=== PATIENT | female | born 1960 | race Caucasian/White ===

== ENCOUNTER → 2022-05-19 | Outpatient (CLI) | payer MEDICAID, SELFPAY ==
--- NOTE | 2022-05-19 13:46 | VDLE_ITS ---
Reason For Study: Swelling, pain Procedure LEFT This is a venous duplex using B-mode, color CFV is compressible, spontaneous, phasic, flow and spectral Doppler. competent, and demonstrates normal Exam performed in department. augmentation. A preliminary report was called and/or faxed FV is compressible, spontaneous, phasic, to Vero RUSSO. competent and demonstrates normal augmentation. POP V is compressible, spontaneous, phasic, competent and demonstrates normal augmentation. T/P Trunk is compressible. PTV is compressible. LT PerV is compressible. SFJ is noncompressible with bright intraluminal echoes. GSV was previously harvested in March 2022 s/p CABG. VL/Venous Duplex US, Unilateral Interpretation Summary Deep veins of the left lower extremity are patent and compressible segmentally. There is no evidence of left lower extremity deep vein thrombosis. Left sapheno-femoral junction with indeterminate superficial vein thrombus, rem ainder of great saphenous surgically absent Ordering Physician: Maira Stack Performed By: Edith Ashby RVT
== END | disposition home or self-care (01) ==
LOC: CVS 13:46
PROVIDERS: Referring Provider Internal Medicine Cardiovascular Disease; Visit Provider Internal Medicine Cardiovascular Disease
DX: M79.605 Pain in left leg (principal); R60.9 Edema, unspecified
CPT/HCPCS: 93971

== ENCOUNTER → 2022-05-26 | Outpatient (CLI) | payer MEDICAID, SELFPAY ==
[2022-05-26 15:46] LABS: Anion Gap 7 (5-15); BUN 21 mg/dL (7-18); BUN/Creat Ratio 24.5 RATIO (10-20); Calcium,Total 9.5 mg/dL (8.5-10.1); Chloride 105 mmol/L (98-107); Creatinine, Serum 0.86 mg/dL (0.55-1.02); EST Glomerular Filtration Rate 71 mL/min (>60); Est Glom Filt Rate - Afr Amer 86 mL/min (>60); Glucose 103 mg/dL (74-106); Potassium 4.1 mmol/L (3.5-5.1); Sodium Level 143 mmol/L (136-145)
== END | disposition home or self-care (01) ==
LOC: LAB 13:41
PROVIDERS: Visit Provider Internal Medicine Cardiovascular Disease
DX: I10 Essential (primary) hypertension (principal)
CPT/HCPCS: 36415; 80048

== ENCOUNTER → 2022-08-20 | Outpatient (CLI) | payer MEDICAID, SELFPAY ==
[2022-08-20 09:26] LABS: AST(SGOT) 22 U/L (15-37); Alanine Aminotransfer ALT/SGPT 30 U/L (13-56); CPK Total, Creatine Kinase 122 U/L (26-192); Cholesterol 149 mg/dL (200); High Density Lipoprotein 52 mg/dL; Triglycerides 99 mg/dL; Very Low Density Lipoprotein 20 mg/dL (5-40)
== END | disposition home or self-care (01) ==
LOC: LAB 08:29
PROVIDERS: Referring Provider Internal Medicine Cardiovascular Disease; Visit Provider Internal Medicine Cardiovascular Disease
DX: E78.2 Mixed hyperlipidemia (principal)
CPT/HCPCS: 36415; 80061; 82550; 84450; 84460

== ENCOUNTER → 2022-08-25 | Outpatient (CLI) | payer MEDICAID, SELFPAY ==
[2022-08-25 10:55] LABS: Anion Gap 8 (5-15); BUN 24 mg/dL (7-18); BUN/Creat Ratio 28.7 RATIO (10-20); Calcium,Total 9.4 mg/dL (8.5-10.1); Chloride 104 mmol/L (98-107); Creatinine, Serum 0.84 mg/dL (0.55-1.02); EST Glomerular Filtration Rate 73 mL/min (>60); Est Glom Filt Rate - Afr Amer 88 mL/min (>60); Glucose 107 mg/dL (74-106); Potassium 3.8 mmol/L (3.5-5.1); Sodium Level 143 mmol/L (136-145)
== END | disposition home or self-care (01) ==
LOC: LAB 09:13
PROVIDERS: Referring Provider Internal Medicine Cardiovascular Disease; Visit Provider Internal Medicine Cardiovascular Disease
DX: I25.10 Atherosclerotic heart disease of native coronary artery without angina pectoris (principal)
CPT/HCPCS: 36415; 80048

== ENCOUNTER → 2022-12-09 | Outpatient (CLI) | payer MEDICAID, SELFPAY ==
[2022-12-09 09:07] LABS: AST(SGOT) 28 U/L (15-37); Alanine Aminotransfer ALT/SGPT 31 U/L (13-56); Cholesterol 131 mg/dL (200); High Density Lipoprotein 61 mg/dL; Triglycerides 74 mg/dL; Very Low Density Lipoprotein 15 mg/dL (5-40)
== END | disposition home or self-care (01) ==
LOC: LAB 07:51
PROVIDERS: Visit Provider Internal Medicine Cardiovascular Disease
DX: I25.10 Atherosclerotic heart disease of native coronary artery without angina pectoris (principal); I42.9 Cardiomyopathy, unspecified; E78.2 Mixed hyperlipidemia
CPT/HCPCS: 36415; 80061; 84450; 84460

== ENCOUNTER → 2023-03-05 | Outpatient (CLI) | payer MEDICARE, MEDICAID, SELFPAY ==
--- NOTE | 2023-03-05 10:46 | ECHOCS_ITS ---
Reason For Study: Dyspnea Procedure This was a 2D Doppler, Color Flow transthoracic echocardiogram. The study was technically difficult. Contrast injection was performed. Exam performed in department. Left Ventricle Mildly dilated left ventricle. The left ventricular ejection fraction is 50 %. Stage 1 diastolic dysfunction. Inferior hypokinesis. Right Ventricle Normal right ventricle. Atria The left and right atria are normal. Bubble contrast study is negative for PFO/ASD. Mitral Valve Mild mitral annular calcification. Trivial mitral valve insufficiency. Tricuspid Valve Trivial tricuspid valve insufficiency. Normal pulmonary artery pressure. Aortic Valve Aortic sclerosis, no stenosis. Pulmonic Valve The pulmonic valve is not well visualized. Great Vessels Mildly dilated aortic root. Pericardium/Pleural No pericardial effusion. Medication 22 gauge I.V. with prn adaptor inserted into right arm. Diluted definity 2ml given slow IV push to enhance endocardial definition. Performed a rapid injection of agitated mix of 9 cc saline and 1cc air to assess for atrial septal defect. MMode/2D Measurements & Calculations LVIDd: 5.7 cm IVSd: 0.96 cm Ao root diam: 3.7 cm LVIDs: 4.5 cm LVPWd: 0.74 cm LA dimension: 4.2 cm RVDd: 4.0 cm FS: 19.8 % LAV(MOD-bp): 54.1 ml LVAd ap4: 41.5 cm2 SV(MOD-sp4): 86.5 ml LAV(MOD-bp) Indexed: 25.7 ml/m2 LVLd ap4: 8.4 cm LAV(MOD-sp2): 63.1 ml EDV(MOD-sp4): 168.5 ml LAV(MOD-sp4): 45.0 ml EDV(sp4-el): 174.3 ml LVAs ap4: 26.4 cm2 LVLs ap4: 6.9 cm ESV(MOD-sp4): 82.0 ml ESV(sp4-el): 86.2 ml EF(MOD-sp4): 51.3 % EF(sp4-el): 50.6 % SV(sp4-el): 88.2 ml LA A4 area: 16.7 cm2 RA A4 area: 14.8 cm2 TAPSE: 1.0 cm Time Measurements MV dec time: 0.38 sec Doppler Measurements & Calculations MV E max marco: 46.1 cm/sec Lat Peak E' Marco: 11.2 cm/sec Med Peak E' Marco: 5.6 cm/sec MV A max marco: 81.0 cm/sec E/E' lat: 4.1 E/E' med: 8.3 MV E/A: 0.57 MV V2 max: 115.5 cm/sec MV P1/2t max marco: 68.1 cm/sec Ao V2 max: 121.4 cm/sec MV max P.3 mmHg MV P1/2t: 120.7 msec Ao max P.9 mmHg MV V2 mean: 58.1 cm/sec MV mean P.6 mmHg MV dec slope: 165.3 cm/sec2 MV V2 VTI: 30.7 cm MVA(P1/2t): 1.8 cm2 LV V1 max: 87.4 cm/sec PA V2 max: 92.8 cm/sec TR max marco: 253.6 cm/sec LV V1 max P.1 mmHg TR max P.7 mmHg ECHO/Echo Complete W/ Contrast Interpretation Summary Mildly dilated left ventricle. The left ventricular ejection fraction is 50 %. Inferior hypokinesis Stage 1 diastolic dysfunction. Mild mitral annular calcification. Aortic sclerosis, no stenosis. Mildly dilated aortic root. Ordering Physician: Maira Stack Referring Physician: Maira Stack Performed By: Abel David RCS
== END | disposition home or self-care (01) ==
LOC: CVS 10:45
PROVIDERS: Referring Provider Internal Medicine Cardiovascular Disease; Visit Provider Internal Medicine Cardiovascular Disease
DX: R06.09 Other forms of dyspnea (principal); I42.9 Cardiomyopathy, unspecified; I25.10 Atherosclerotic heart disease of native coronary artery without angina pectoris; I10 Essential (primary) hypertension; R06.02 Shortness of breath
CPT/HCPCS: 93306; Q9957; A4216; C8929